=== PATIENT | male | born 1980 | race Caucasian/White ===

== ENCOUNTER 2016-07-10 21:23 | Emergency (ER) | payer SELFPAY ==
[2016-07-10 21:38] VITALS: BP 120/81; PULSE 65; RESP 17; TEMP 98.1; O2SAT 98
[2016-07-10] MEDS ORDERED: Sodium Chloride 0.9% 1,000 ML IV STA (21:51)
--- NOTE | 2016-07-10 22:33 | US ---
EXAM: US Abdomen Limited, Right Upper Quadrant CLINICAL HISTORY: 35 years old, male; Pain; Abdominal pain; Epigastric; Additional info: Severe abdominal pain and vomiting, h/o gallstones TECHNIQUE: Real-time ultrasound of the right upper quadrant with image documentation. EXAM DATE/TIME: 07/10/2016 9:42 PM COMPARISON: No relevant prior studies available. FINDINGS: Gallbladder: Contains multiple shadowing gallstones, which were reportedly mobile on real-time.No significant gallbladder wall thickening noted. No evidence of pericholecystic fluid. Reportedly negative sonographic Fraser's sign. Common bile duct: Does not appear abnormally dilated, measuring less than 6 mm in diameter. Liver: Within normal limits in appearance. Measures 14.9 cm in length. Normal flow seen in the main portal vein on color and Doppler imaging. Pancreas: Poorly seen due to gas. Imaged portions appear grossly unremarkable. Right kidney: Within normal limits in appearance. Measures 10.2 cm in length. No evidence of hydronephrosis. IMPRESSION: Gallstones. No sonographic evidence of acute cholecystitis. See above for remaining findings.
[2016-07-10 23:24] LABS: BASO # 0.1 K/uL (0.0-0.2); BASO % 0.4 % (0.0-2.0); EOS % 0.1 % (0.0-4.0); HEMATOCRIT 48.6 % (35.0-51.0); LYMPH # 1.1 K/uL (1.0-4.3); LYMPH % 10.2 % (20.0-40.0); MEAN CORPUSCULAR HEMOGLOBIN 29.7 pg (27.0-31.0); MEAN CORPUSCULAR HGB CONC 33.4 g/dL (33.0-37.0); MEAN PLATELET VOLUME 9.7 fl (7.2-11.7); MONO # 0.3 K/uL (0.0-0.8); MONO % 3.1 % (0.0-10.0); NEUT # 9.7 K/uL (1.8-7.0); NEUT % 86.2 % (50.0-75.0); NRBC % 0.1 % (0.0-0.0); RED CELL DISTRIBUTION WIDTH 13.9 % (11.5-14.5); WHITE BLOOD COUNT 11.3 K/uL (4.8-10.8)
[2016-07-10 23:40] LABS: ALB/GLOB RATIO 1.2 (1.0-2.1); ALCOHOL SERUM < 10 mg/dl (0-10); ALKALINE PHOSPHATASE 90 U/L (38-126); ALT/SGPT 79 U/L (21-72); AST/SGOT 45 U/L (17-59); BILIRUBIN,TOTAL 0.5 mg/dl (0.2-1.3); BLOOD UREA NITROGEN 17 mg/dl (9-20); CALCIUM 10.1 mg/dL (8.4-10.2); CARBON DIOXIDE 29 mmol/L (22-30); CHLORIDE 102 mmol/L (98-107); GFR AFRICAN-AMERICAN > 60; GLUCOSE,RANDOM 132 mg/dL (75-110); LIPASE 127 U/L (23-300); POTASSIUM 4.4 MMOL/L (3.6-5.0); SODIUM 146 mmol/l (132-148); TOTAL PROTEIN 8.5 G/DL (6.3-8.2)
[2016-07-10 23:43] LABS: PARTIAL THROMBOPLASTIN TIME 27.3 SECONDS (23.3-32.5)
--- NOTE | 2016-07-10 23:48 | ED PDOC ---
HPI: Abdomen Time Seen by Provider: 07/10/16 21:41 Chief Complaint (Nursing): Chest Pain Chief Complaint (Provider): abd pain History Per: Patient History/Exam Limitations: no limitations Onset/Duration Of Symptoms: Days (1, started this morning ~8am), Gradual, Persistent, Worse Since (6pm) Location Of Pain/Discomfort: Epigastric Quality Of Discomfort: Aching Associated Symptoms: Nausea, Vomiting (x2 nonbilious nonbloody). denies: Fever , Chills, Diarrhea, Loss Of Appetite, Back Pain, Chest Pain, Urinary Symptoms Exacerbating Factors: None Alleviating Factors: None Additional Complaint(s): Similar to previous episodes few months ago, went to [facility] and evaluated. Past Medical History Reviewed: Historical Data, Nursing Documentation, Vital Signs Vital Signs: Last Vital Signs Temp 98.1 F 07/10/16 21:36 Pulse 65 07/10/16 21:36 Resp 17 07/10/16 21:36 BP 120/81 07/10/16 21:36 Pulse Ox 98 07/10/16 23:53 - Medical History PMH: No Chronic Diseases - Surgical History Surgical History: No Surg Hx - Family History Family History: States: Unknown Family Hx - Social History Current smoker - smoking cessation education provided: No Alcohol: Occasional Drugs: Denies - Immunization History Hx Tetanus Toxoid Vaccination: No Hx Influenza Vaccination: No Hx Pneumococcal Vaccination: No - Home Medications Home Medications: Ambulatory Orders Medication Instructions Recorded Famotidine [Pepcid] 20 mg PO BID PRN #15 tab 05/28/15 Ondansetron [Zofran Odt] 4 mg PO Q8 PRN #10 odt 05/28/15 Pantoprazole Sodium [Protonix] 20 mg PO DAILY #15 ect 01/22/16 Omeprazole Magnesium [Prilosec Otc] 20 mg PO DAILY #30 tcp 07/10/16 Ondansetron [Zofran] 4 mg PO Q8H PRN #15 tab 07/10/16 traMADol [Ultram] 50 mg PO TID PRN 3 Days 07/10/16 - Allergies Allergies/Adverse Reactions: Allergies Allergy/AdvReac Type Severity Reaction Status Date / Time No Known Allergies Allergy Unverified 01/21/16 20:22 Review of Systems ROS Statement: Except As Marked, All Systems Reviewed And Found Negative (and as per HPI) Gastrointestinal: Positive for: Nausea, Vomiting, Abdominal Pain. Negative for : Diarrhea, Constipation, Melena, Hematochezia, Hematemesis Genitourinary Male: Negative for: Dysuria, Frequency Physical Exam - Reviewed Nursing Documentation Reviewed: Yes Vital Signs Reviewed: Yes - Physical Exam Appears: Positive for: Well, No Acute Distress Head Exam: Positive for: ATRAUMATIC, NORMOCEPHALIC Skin: Positive for: Warm, Dry Eye Exam: Positive for: EOMI, PERRL ENT: Negative for: Pharyngeal Erythema, Tonsillar Exudate Neck: Positive for: Painless ROM, Supple Cardiovascular/Chest: Positive for: Regular Rate, Rhythm, Chest Non Tender. Negative for: Murmur Respiratory: Positive for: Normal Breath Sounds. Negative for: Wheezing, Respiratory Distress Gastrointestinal/Abdominal: Positive for: Soft, Tenderness (mild epig tenderness to deep palpation, neg lange, negative mcburney). Negative for: Mass, Distended, Guarding, Rebound Back: Positive for: Normal Inspection. Negative for: L CVA Tenderness, R CVA Tenderness Extremity: Positive for: Normal ROM. Negative for: Pedal Edema Lymphatic: Negative for: Adenopathy Neurologic/Psych: Positive for: Alert. Negative for: Motor/Sensory Deficits - Laboratory Results Result Diagrams: 07/10/16 23:18 07/10/16 23:18 - ECG O2 Sat by Pulse Oximetry: 98 Medical Decision Making Medical Decision Making: Impression: ABdominal pain reviewed chart at [facility]. Labs unremarkable, CT demonstrated gallstones. Ddx include but not limited to cholecystitis, cholelithiasis, pancreatitis, gastritis, hepatitis, dyspepsia. Labs demonstrate mild leukocytosis, otherwise no clinically significant lab abnormalities. Disposition - Clinical Impression Clinical Impression: Abdominal pain Counseled Patient/Family Regarding: Studies Performed, Diagnosis, Need For Followup, Rx Given - Disposition Referrals: [facility] [Outside] - 07/17/16 ([facility]) Disposition: Routine/Home Disposition Time: 23:51 Condition: IMPROVED Prescriptions: Omeprazole Magnesium [Prilosec Otc] 20 mg PO DAILY #30 tcp traMADol [Ultram] 50 mg PO TID PRN 3 Days PRN Reason: SEVERE PAIN ONLY Ondansetron [Zofran] 4 mg PO Q8H PRN #15 tab PRN Reason: Nausea/Vomiting Instructions: Gallstones (ED) Forms: [facility] ED School/Work Excuse Print Language: HUNGARIAN
== END 2016-07-11 00:45 | disposition home or self-care (01) ==
LOC: H.ER 21:23
DX: R10.13 Epigastric pain (principal)
CPT/HCPCS: 76705; 80053; 83690; 85025; 85610; 85730; 96374; 99283; G0480; J1885; J2405; J7040